=== PATIENT | male | born 1960 | race African-American/Black ===

== ENCOUNTER 2021-08-17 20:41 | Inpatient (IN) | payer MEDICARE ==
[2021-08-17] MEDS ORDERED: Insulin Regular 300 UNITS/3 ML VIAL ONE (21:02)
[2021-08-17] MEDS ORDERED: Fentanyl 100 MCG/2 ML VIAL ONE (21:05)
[2021-08-17] MEDS ORDERED: Calcium Gluc 4.6 MEQ/10 ML (100 MG/ML) ONE (21:08)
[2021-08-17 21:12] LABS: #Basophils 0.1 10x3/uL (0.0-0.2); #Eosinphils 0.4 10x3/uL (0.0-0.5); #Neutrophils 8.7 10x3/uL (1.5-8.4); %Basophils 0.6 % (0.0-2.0); %Eosinophils 2.7 % (0.0-6.0); %Lymphocytes 24.7 % (18.0-47.0); %Monocytes 7.1 % (0.0-10.0); %Neutrophils 60.8 % (40.0-75.0); Hemoglobin 10.1 g/dL (13.5-17.5); Mean Corpuscular Hemoglobin 24.6 pg (27.0-33.0); Mean Corpuscular Volume 76.9 fl (81.2-95.1); Mean Platelet Volume 10.8 fl (7.4-10.4); Platelet Count 293 10x3/uL (150-450); Red Blood Cell (RBC) Count 4.11 10x6/uL (4.32-5.72); White Blood Cell (WBC) Count 14.3 10x3/uL (3.5-10.5)
[2021-08-17] MEDS ORDERED: Albuterol Sulfate 2.5 mg/3 ml Neb ONE ×2 (21:22)
[2021-08-17 21:52] LABS: SARS-CoV-2 NAA Rapid Test Not Detected (NotDetected)
[2021-08-17 21:52] LABS: ALT (SGPT) 105 U/L (8-55); AST (SGOT) 97 U/L (5-34); Albumin 3.6 g/dL (3.5-5.0); Alkaline Phosphatase 76 U/L (40-110); Anion Gap 26 mmol/L (10-20); BUN (Urea Nitrogen) 118 mg/dL (8.4-25.7); Bilirubin, Total 0.5 mg/dL (0.2-1.2); Calc. Creatinine Clearance 0 mL/min (70-130); Carbon Dioxide 14 mmol/L (22-29); Chloride 105 mmol/L (98-107); Globulin 3.5 g/dL (2.4-3.5); Glucose 249 mg/dL (70-105); Potassium 8.8 mmol/L (3.5-5.1); Protein, Total 7.1 g/dL (6.0-8.3); Sodium 136 mmol/L (136-145)
[2021-08-17 21:58] LABS: Calcium Greater than 17.0 mg/dL (7.8-10.44)
[2021-08-17 22:24] LABS: INR-International Normal Ratio 1.1; PTT 22.5 sec (22.0-33.0); Prothrombin Time 12.3 sec (9.5-12.1)
[2021-08-17 22:54] LABS: Digoxin Less than 0.15 ng/mL (0.8-2.0)
[2021-08-17] MEDS ORDERED: HYDROmorphone 0.5 MG/0.5 ML SYRINGE ONE (23:19)
[2021-08-17] MEDS ORDERED: Propofol 1,000 MG/100 ML VIAL IV ONE (23:53)
[2021-08-18] MEDS ORDERED: HumaLOG 300 UNITS/3 ML VIAL SC PRN (00:10)
[2021-08-18] MEDS ORDERED: Dextrose 50% Abboject 50 ML SYRINGE SLOW IVP PRN (00:10)
[2021-08-18] MEDS ORDERED: Dextrose 5% in Water 1,000 ML IV PRN (00:10)
[2021-08-18] MEDS ORDERED: Cefepime 2 GM in Sodium Chloride 0.9% 100 ML IVPB SCH (00:15)
[2021-08-18 00:29] VITALS: BMI 31.9
[2021-08-18] MEDS ORDERED: VANCOMYCIN 1.75 GM/350 ML BAG 1.75 GM in Premix Bag 1 BAG IVPB SCH (00:30)
[2021-08-18] MEDS ORDERED: FLU VACC QS2021-22(6MOS UP)/PF 60 MCG/0.5 ML SYRINGE IM ONE (01:00)
[2021-08-18] MEDS ORDERED: Prevnar 13-Val Conj/PF 0.5 ML SYRINGE IM ONE (01:00)
[2021-08-18] MEDS ORDERED: fentaNYL Citrate-0.9 % NaCl/PF 100 ML IVPB SCH (01:15)
[2021-08-18] MEDS ORDERED: Propofol BOLUS 1,000 MG/100 ML VIAL IV PRN (01:15)
[2021-08-18] MEDS ORDERED: Fentanyl BOLUS 250 ML IVPB PRN (01:15)
[2021-08-18] MEDS ORDERED: DISCONTINUE PREVIOUS NARCOTIC PAIN MEDICATIONS AND BENZODIAZEPINES FS SCH (01:15)
[2021-08-18] MEDS ORDERED: Morphine 2 MG/ML VIAL SLOW IVP PRN (01:15)
[2021-08-18] MEDS ORDERED: Propofol 1,000 MG/100 ML VIAL IV PRN (01:15)
[2021-08-18] MEDS ORDERED: Lorazepam 2 MG/ML VIAL SLOW IVP PRN (01:15)
[2021-08-18] MEDS ORDERED: Sodium Bicarb 50 MEQ/50 ML VIAL IVP SCH (02:00)
[2021-08-18] MEDS ORDERED: Calcium Chloride 1 GM/10 ML Abboject SYRINGE IVP SCH (02:00)
[2021-08-18 02:25] LABS: Magnesium 2.4 mg/dL (1.6-2.6); Phosphorus 5.9 mg/dL (2.3-4.7)
[2021-08-18 02:32] LABS: Troponin I 0.038 ng/mL (< 0.028)
[2021-08-18 03:08] LABS: Hep B Surf Ag Non-Reactive S/CO (NonReactive)
[2021-08-18 04:05] LABS: #Eosinphils 0.1 10x3/uL (0.0-0.5); #Monocytes 0.4 10x3/uL (0.0-1.1); #Neutrophils 6.1 10x3/uL (1.5-8.4); %Basophils 0.1 % (0.0-2.0); %Eosinophils 1.2 % (0.0-6.0); %Lymphocytes 12.2 % (18.0-47.0); %Monocytes 5.6 % (0.0-10.0); %Neutrophils 80.2 % (40.0-75.0); Hemoglobin 9.4 g/dL (13.5-17.5); Mean Corpuscular HGB CONC 32.5 g/dL (32.0-36.0); Mean Corpuscular Hemoglobin 24.5 pg (27.0-33.0); Mean Corpuscular Volume 75.5 fl (81.2-95.1); Mean Platelet Volume 10.5 fl (7.4-10.4); Platelet Count 331 10x3/uL (150-450); RBC Distribution Width 19.7 % (11.5-14.5); Red Blood Cell (RBC) Count 3.83 10x6/uL (4.32-5.72); White Blood Cell (WBC) Count 7.6 10x3/uL (3.5-10.5)
[2021-08-18 04:08] LABS: HBSAg Index 0.18 S/CO (0-0.99)
[2021-08-18 04:43] LABS: Troponin I 0.049 ng/mL (< 0.028)
[2021-08-18 04:49] LABS: Anion Gap 17 mmol/L (10-20); BUN (Urea Nitrogen) 45 mg/dL (8.4-25.7); Calc. Creatinine Clearance 18 mL/min (70-130); Carbon Dioxide 27 mmol/L (22-29); Chloride 98 mmol/L (98-107); Glucose 120 mg/dL (70-105); Potassium 4.3 mmol/L (3.5-5.1); Sodium 138 mmol/L (136-145)
[2021-08-18] MEDS ORDERED: Rocuronium Bromide 10 MG/ML (10ML VIAL) ONE (06:00)
[2021-08-18] MEDS ORDERED: DC Sedation Protocol FS ONE (07:11)
[2021-08-18 07:52] LABS: Actual Bicarbonate (HCO3a) 24.8 mEq/L (22-28); Base Excess (BEa) 0.7 mEq/L (-2.0 to +3.0); CO2 Tension 37.8 mmHg (35.0-45.0); Calcium, Ionized (arterial) 1.12 mmol/L (1.12-1.30); Carboxyhemoglobin (COHb) 0.9 gm% (0.0-3.0); Hemoglobin (Hb) 10.2 g/dL (14.0-18.0); O2 Tension (PaO2), arterial 127.9 mmHg (80.0-100.0); Potassium - ABG Lab 5.3 mmol/L (3.70-5.30); Puncture Site LBA; pH, Arterial 7.44 (7.35-7.45)
[2021-08-18] MEDS: Pantoprazole 40 MG VIAL IVP SCH (08:08)
[2021-08-18] MEDS: Heparin 5,000 UNITS/ML VIAL SC SCH ×3 (08:08→22:00)
[2021-08-18 13:35] LABS: HBSAB Concentration 13.22 mIU/mL; Hep B Surf AB Reactive (NonReactive)
[2021-08-18 14:28] LABS: Anion Gap 21 mmol/L (10-20); BUN (Urea Nitrogen) 78 mg/dL (8.4-25.7); Calc. Creatinine Clearance 9 mL/min (70-130); Calcium 9.3 mg/dL (7.8-10.44); Carbon Dioxide 25 mmol/L (22-29); Chloride 98 mmol/L (98-107); Glucose 96 mg/dL (70-105); Potassium 5.8 mmol/L (3.5-5.1); Sodium 138 mmol/L (136-145)
[2021-08-18 18:12] LABS: Actual Bicarbonate (HCO3a) 16.6 mEq/L (22-28); Base Excess (BEa) -8.9 mEq/L (-2.0 to +3.0); CO2 Tension 34.6 mmHg (35.0-45.0); Calcium, Ionized (arterial) 1.37 mmol/L (1.12-1.30); Carboxyhemoglobin (COHb) 0.3 gm% (0.0-3.0); Hemoglobin (Hb) 9.7 g/dL (14.0-18.0); O2 Tension (PaO2), arterial 261.2 mmHg (80.0-100.0); Potassium - ABG Lab 8.1 mmol/L (3.70-5.30); Puncture Site RRA
[2021-08-19] MEDS: traMADol HCl 50 MG TAB PO PRN ×2 (00:07→16:49)
[2021-08-19 03:53] LABS: Anion Gap 24 mmol/L (10-20); BUN (Urea Nitrogen) 60 mg/dL (8.4-25.7); Calc. Creatinine Clearance 11 mL/min (70-130); Calcium 9.1 mg/dL (7.8-10.44); Carbon Dioxide 20 mmol/L (22-29); Chloride 102 mmol/L (98-107); Glucose 92 mg/dL (70-105); Sodium 139 mmol/L (136-145)
[2021-08-19 03:59] LABS: Potassium 6.7 mmol/L (3.5-5.1)
[2021-08-19] MEDS ORDERED: Albuterol Sulfate 2.5 mg/3 ml Neb NEB SCH (05:15)
[2021-08-19] MEDS ORDERED: Dextrose 50% Abboject 50 ML SYRINGE SLOW IVP SCH (05:15)
[2021-08-19] MEDS ORDERED: Insulin Regular 300 UNITS/3 ML VIAL IVP SCH (05:15)
[2021-08-19] MEDS: Calcium Gluc 4.6 MEQ/10 ML (100 MG/ML) SLOW IVP SCH ×2 (05:27→08:25)
[2021-08-19 07:12] LABS: Anion Gap 19 mmol/L (10-20); BUN (Urea Nitrogen) 53 mg/dL (8.4-25.7); Calc. Creatinine Clearance 11 mL/min (70-130); Calcium 8.8 mg/dL (7.8-10.44); Carbon Dioxide 26 mmol/L (22-29); Chloride 101 mmol/L (98-107); Glucose 74 mg/dL (70-105); Potassium 4.5 mmol/L (3.5-5.1); Sodium 141 mmol/L (136-145)
[2021-08-19] MEDS: Pantoprazole 40 MG VIAL IVP SCH (08:22)
[2021-08-19] MEDS: Heparin 5,000 UNITS/ML VIAL SC SCH ×3 (08:25→21:09)
[2021-08-19] MEDS: Acetaminophen 325 MG TAB PO PRN ×2 (08:26→21:14)
[2021-08-19] MEDS ORDERED: Calcium Acetate 667 MG CAP PO SCH (09:45)
[2021-08-19] MEDS ORDERED: Heparin 10,000 UNITS/ 10 ML VIAL FS PRN (11:03)
[2021-08-19] MEDS ORDERED: prednisoLONE 1% Ophth Susp 5 ml Bottle EA EYE SCH (14:00)
[2021-08-19] MEDS ORDERED: Atorvastatin Calcium 20 MG TAB PO SCH (21:00)
[2021-08-19] MEDS: Carvedilol 25 MG TAB PO SCH (21:06)
[2021-08-20] MEDS: Carvedilol 25 MG TAB PO SCH (05:09)
[2021-08-20] MEDS: traMADol HCl 50 MG TAB PO PRN (05:09)
[2021-08-20 05:24] LABS: Anion Gap 21 mmol/L (10-20); BUN (Urea Nitrogen) 46 mg/dL (8.4-25.7); Calc. Creatinine Clearance 13 mL/min (70-130); Calcium 8.7 mg/dL (7.8-10.44); Carbon Dioxide 23 mmol/L (22-29); Chloride 99 mmol/L (98-107); Glucose 98 mg/dL (70-105); Potassium 4.8 mmol/L (3.5-5.1); Sodium 138 mmol/L (136-145)
[2021-08-20] MEDS ORDERED: Morphine 4 MG/ML VIAL SLOW IVP SCH (06:45)
[2021-08-20] MEDS: Heparin 5,000 UNITS/ML VIAL SC SCH ×2 (07:21→15:09)
[2021-08-20] MEDS: Pantoprazole 40 MG VIAL IVP SCH (07:30)
[2021-08-20] MEDS ORDERED: NIFEdipine XL 60 MG TAB PO SCH (09:00)
[2021-08-20] MEDS ORDERED: HumuLIN 70/30 (300 UNITS/3 ML VIAL) SC SCH (09:00)
[2021-08-20] MEDS ORDERED: prednisoLONE 1% Ophth Susp 5 ml Bottle EA EYE SCH ×3 (09:00)
[2021-08-20] MEDS ORDERED: Aspirin 81 mg Enteric Coated Tablet PO SCH (09:00)
[2021-08-20 11:47] VITALS: BP 107/66; TEMP 98.1
[2021-08-20] MEDS ORDERED: Calcium Chloride 1 GM/10 ML Abboject SYRINGE ONE (13:58)
[2021-08-20] MEDS ORDERED: EPINEPHrine 1 MG/10 ML Abboject SYRINGE ONE (13:58)
[2021-08-20] MEDS ORDERED: Dextrose 50% Abboject 50 ML SYRINGE ONE (13:58)
[2021-08-20] MEDS ORDERED: Sodium Bicarb 50 MEQ/50 ML Abboject 8.4% SYRINGE ONE (13:58)
== END 2021-08-20 17:58 | disposition home or self-care (01) | DRG 640 ==
LOC: CSHERS 20:41 → CSHIMCU 20:42 → CSHTELE 08-19 16:06
PROVIDERS: ADMIT Family Medicine; ATTEND Hospitalist
PROC: 5A12012 Performance of Cardiac Output, Single, Manual (ICD-10-PCS; principal; 2021-08-18)
PROC: 02HV33Z Insertion of Infusion Device into Superior Vena Cava, Percutaneous Approach (ICD-10-PCS; 2021-08-18)
PROC: 0BH17EZ Insertion of Endotracheal Airway into Trachea, Via Natural or Artificial Opening (ICD-10-PCS; 2021-08-18)
PROC: 5A1935Z Respiratory Ventilation, Less than 24 Consecutive Hours (ICD-10-PCS; 2021-08-18)
DX: E87.5 Hyperkalemia (principal); N18.6 End stage renal disease; J96.01 Acute respiratory failure with hypoxia; I13.2 Hypertensive heart and chronic kidney disease with heart failure and with stage 5 chronic kidney disease, or end stage renal disease; I50.32 Chronic diastolic (congestive) heart failure; Z20.822 Contact with and (suspected) exposure to COVID-19; E83.52 Hypercalcemia; E11.22 Type 2 diabetes mellitus with diabetic chronic kidney disease; H54.8 Legal blindness, as defined in USA; E11.51 Type 2 diabetes mellitus with diabetic peripheral angiopathy without gangrene; D63.1 Anemia in chronic kidney disease; Z99.2 Dependence on renal dialysis; Z91.15 Patient's noncompliance with renal dialysis; Z79.4 Long term (current) use of insulin; Z86.73 Personal history of transient ischemic attack (TIA), and cerebral infarction without residual deficits; Z89.512 Acquired absence of left leg below knee; Z79.899 Other long term (current) drug therapy; Z79.82 Long term (current) use of aspirin; Z87.891 Personal history of nicotine dependence
CPT/HCPCS: 0240U; 31500; 36415; 36416; 36556; 36600; 51702; 70450; 71045; 80048; 80053; 80162; 82805; 83605; 83735; 83880; 84100; 84484; 85025; 85610; 85730; 86706; 86850; 86900; 86901; 87040; 87340; 90935; 93005; 93010; 93306; 94002; 94003; 94640; 94760; 96365; 96366; 96375; 96376; 99292; C9113; G0257; J0171; J0610; J0692; J1170; J1644; J1815; J2270; J2704; J3010; J3370; J3490; J7611